=== PATIENT | male | born 1990 | race Caucasian/White ===

== ENCOUNTER 2020-06-30 10:44 | Emergency (ER) | payer OTHER ==
[~2020-06-30] VITALS: Ht 177.8 cm; Wt 127.0 kg
[2020-06-30 10:51] VITALS: BP 140/74
[2020-06-30] MEDS ORDERED: NORCO 5-325 TA1 EAC2 PO (11:48)
[2020-06-30] MEDS ORDERED: FLEXERIL PO (11:48)
[2020-06-30] MEDS ORDERED: IBUPROFEN 800800 M1 PO (11:48)
== END 2020-06-30 12:03 | disposition home or self-care (01) ==
LOC: M.ERS 10:44
DX: S76.012A Strain of muscle, fascia and tendon of left hip, initial encounter (principal); M79.605 Pain in left leg; Z88.6 Allergy status to analgesic agent; X50.1XXA Overexertion from prolonged static or awkward postures, initial encounter; Y93.89 Activity, other specified; Y92.89 Other specified places as the place of occurrence of the external cause; Y99.8 Other external cause status